=== PATIENT | female | born 1935 | race Caucasian/White ===

== ENCOUNTER 2024-04-28 19:42 | Emergency (ER) | payer OTHER, MEDICARE ==
[~2024-04-28 19:42] MED LIST: LIDOCAINE PATCH REMOVAL MC SCH
[2024-04-28 20:00] VITALS: BP 129/89; PULSE 81; RESP 20; TEMP 97.9; BMI 26.5
[2024-04-28] MEDS ORDERED: ACETAMINOPHEN INJECTION 100 ML ONE (20:31)
[2024-04-28] MEDS ORDERED: LIDOCAINE 5% TOPICAL PATCH ONE (20:31)
[2024-04-28] MEDS ORDERED: ONDANSETRON 4 MG/2 ML VIAL ONE (20:31)
[2024-04-28] MEDS: ONDANSETRON 4 MG/2 ML VIAL IVPUSH ONE (20:38)
[2024-04-28] MEDS: ACETAMINOPHEN 1000 MG/100 ML BAG IVPB ONE (20:38)
[2024-04-28] MEDS: LIDOCAINE 4% PATCH TP ONE (20:38)
[2024-04-28 20:43] LABS: HEMATOCRIT 41.4 % (32.4-45.2); HEMOGLOBIN 14.1 GM/dL (10.7-15.3); MEAN CELL VOLUME 102.9 fl (80-96); MEAN PLT VOLUME 6.9 fl (7.5-11.1); PLATELET COUNT 229 10^3/uL (134-434); RBC 4.03 M/mm3 (3.60-5.2); RDW 13.3 % (11.6-15.6); WHITE BLOOD COUNT 7.7 K/mm3 (4.0-10.0)
[2024-04-28 20:50] LABS: POTASSIUM 3.8 mmol/L (3.5-5.1)
[2024-04-28 20:52] LABS: CALCIUM 9.4 mg/dL (8.5-10.1)
[2024-04-28 20:53] LABS: ALBUMIN 3.7 g/dl (3.4-5.0); BLOOD UREA NITROGEN 11.6 mg/dL (7-18); MAGNESIUM 1.8 mg/dL (1.8-2.4)
[2024-04-28 20:56] LABS: CREATININE 0.8 mg/dL (0.55-1.3)
[2024-04-28 20:57] LABS: BILIRUBIN,TOTAL 0.4 mg/dL (0.2-1)
== END 2024-04-28 22:47 | disposition home or self-care (01) ==
LOC: JER 19:42
PROC: 3E033NZ Introduction of Analgesics, Hypnotics, Sedatives into Peripheral Vein, Percutaneous Approach (ICD-10-PCS; principal; 2024-04-28)
PROC: 3E033GC Introduction of Other Therapeutic Substance into Peripheral Vein, Percutaneous Approach (ICD-10-PCS; 2024-04-28)
DX: M25.572 Pain in left ankle and joints of left foot (principal); M54.50 Low back pain, unspecified; R11.0 Nausea; R51.9 Headache, unspecified; R63.0 Anorexia; W01.0XXA Fall on same level from slipping, tripping and stumbling without subsequent striking against object, initial encounter
CPT/HCPCS: 36415; 70450-TC; 72125-TC; 73610-TC-LT-FY; 73630-TC-LT; 80053; 83735; 84484; 85027; 93005; 93010; 96374; 96375; 99285-25; J0131